=== PATIENT | female | born 1970 | race Caucasian/White ===

== ENCOUNTER 2018-06-12 09:20 | Inpatient (IN) | payer OTHER ==
[2018-06-12] VITALS (17 sets, daily range): BP systolic 109–147; BP diastolic 40–80
[~2018-06-12] VITALS: Ht 170.1 cm; Wt 101.8 kg
--- NOTE | ~2018-06-12 | PR ---
[place], [place] [facility] NOTE [id number] #: [id number] ROOM: 531 DOCTOR: SHAKILA RAYMUNDO DPM BIRTHDATE: [birth year] DOS: SUBJECTIVE: The patient is seen postop trimalleolar fracture with syndesmotic dysfunction repair, left. The patient is resting comfortably in bed. OBJECTIVE: No calf pain noted. Cap refill time within normal limits. BK cast intact. ASSESSMENT: Postop trimalleolar fracture repair, left ankle. PLAN: I discussed the case with Internal Medicine. The patient may go home later today and will follow with Dr. Castro at the office. SHAKILA RAYMUNDO DPM CM:PNEVELIN [phone] SHAKILA RAYMUNDO DPM 06/13/181932 interface
--- NOTE | ~2018-06-12 | EKG ---
[place], [place] ELECTROCARDIOGRAM REPORT NAME: TAYLOR ROCK UNIT #: [id number] ROOM: 531 DOCTOR: MALIA DRAFT REPORT BIRTHDATE: [birth year] [facility] Test Date: 2018-06-12 Test Time: 11:48:55 Pat Name: TAYLOR ROCK Department: Room: 531 Gender: F Manager Food Safety: RENEA : 1970 Requested By: MARLENI REYES Order Number: [id number] Reading MD: Cinthia Martinez MD Measurements Intervals [place] Rate: 50 P: 51 OK: 132 QRS: 7 QRSD: 100 T: 31 QT: 436 QTc: 398 Interpretive Statements Sinus rhythm Atrial premature complex No previous ECG available for comparison Electronically Signed On 06-19-2018 8:41:34 PST by Cinthia Martinez MD CM:EKGRPT:ELECTROCARDIOGRAM REPORT [id number] MARLENI REYES EPIPHANY DRAFT REPORT MARLENI REYES
--- NOTE | ~2018-06-12 | WRIGHTHP ---
[place], [place] PATIENT HISTORY AND PHYSICAL EXAM NAME: TAYLOR ROCK UNIT #: [id number] ROOM: 531 DOCTOR: MONIK IVEY DPM BIRTHDATE: [birth year] DOS: 06/12/2018 LOWER EXTREMITY PHYSICAL EXAMINATION. VASCULAR: Once she was in the surgical suite, vascular status was intact. Good cap refill time was noted. Palpable pedal pulses, 2/4 DP and PT bilaterally. In the ER, ____ good sensation to right lower extremity. At this time, I ____ assess as she had a pop block performed and she has been anesthetized. DERMATOLOGIC: She had no fracture blisters. Skin tear was intact. She had ecchymosis. Some [id number] edema given her instability and gross displacement of her ankle fracture. ORTHOPEDIC: Exam revealed a significant trimalleolar ankle fracture with large posterior malleolus and comminution in fibula and medial malleolar fracture as well. MONIK IVEY DPM CM:HISPHYS:PATIENT HISTORY AND PHYSICAL EXAMINATION 26 41 MONIK IVEY DPM 06/12/18 2301 interface
--- NOTE | ~2018-06-12 | O ---
[place], [place] OPERATIVE NOTE NAME: [facility] [id number] UNIT #: [id number] ROOM: 531 DOCTOR: MONIK IVEY DPM BIRTHDATE: [birth year] DOS: 06/12/2018 SURGEON: Monik Ivey DPM ASSISTANTS: 1. Dr. Lencho Diallo. 2. Bennett Bowden, PGY-3 3. Cameron Dawkins, PGY-2 PREOPERATIVE DIAGNOSIS: Trimalleolar ankle fracture of the left. PREOPERATIVE DIAGNOSIS: Trimalleolar ankle fracture of the left with inclusion of partial syndesmosis tear of her left ankle. PROCEDURES: 1. Open reduction trimalleolar ankle fracture. 2. Repair of syndesmosis injury of the left ankle. This patient was seen in the preop holding, appropriate site marking was performed. She agreed, the site marking, also concurred with the treatment, understanding of pros and cons, risks and benefits. With this in mind, she was brought in the OR and placed on a well-padded OR table where anesthesia was achieved. Her left foot and leg were prepped and draped in sterile fashion. The patient had popliteal block in the preoperative holding area. PROCEDURES: 1. Open reduction and internal fixation of distal fibula ____ pressure was reduced, temporarily fixated under fluoroscopy. 2. Interfrag screws 3.5 mm was performed. This was fixated with a fibular plate consisted of locking and nonlocking screws. At this point in time, syndesmosis was stressed noted to be fairly stable, but was not certain as there was no gross instability because of posterior malleolus and medial malleolus. Next, attention was directed medially where incision was made to safe the neurovascular structures down to the deep tissue. At this point in time, there appeared to be little bit more comminution of what appeared on the plain films. It was temporarily reduced with a bone reduction forceps and this was fixated with 4 solid cortical screws. This was stable; however, this did fragment and this became even more comminuted at this point in time. At this point in time, the screws had to be backed out and a 6-hole plate was utilized and then capturing the distal medial tip of the malleolus. At this time, this was fixated with approximately 3.5 solid cortical screw with locking and nonlocking screws; however, there was still some fragment at the medial gutter that was not quite aligned and the screws could not capture, so we used K-wire to maintain this and get the mortise anatomic alignment. Next, the posterior malleolus was reduced, it was temporarily fixated with K wires and attempt was performed ____ repair. This cannot be well maintained, so this was backed out and a large Ponce clamp was used to reduce this. The posterior cortex noted to be very well aligned. There was noted to be significant loss of a distal articular piece that was noted more like a knot on the injury. The [place], [place] OPERATIVE NOTE NAME: TAYLOR ROCK UNIT #: [id number] ROOM: [facility] DOCTOR: MONIK IVEY DPM BIRTHDATE: [birth year] posterior cortex was well aligned, well maintained in order to have clamp compression and 2 indirect 3.5 cortical screws were used fixing this area. At this point in time, ankle joint was noted to be pretty good; however, there was some slight instability and there was a palpable click that could be determined and it was determined that this is from the syndesmosis, so a large Ponce clamp was put on with ankle joint dorsiflexion to neutral position and two 4.0 solid cortical screws were utilized for syndesmosis from lateral to medial. Once this was performed, this accepted the fibula slightly more medially stabilizing the mortise better and there was no audible palpable click that could be determined and the range of motion was adequate. The 0.062 K-wire was used for being interfered with ankle joint motion. There was flow without difficulty. Then anatomic alignment was noted to be well maintained throughout with the distal fibula, posterior malleolus and the medial malleolus as well as syndesmosis. Again, range of motion was checked, 2 hours of tourniquet had been dropped and ____ wet with good hemostasis was obtained. The area was irrigated with copious amounts of sterile saline. Deep tissues were closed using 0 Vicryl, skin was closed with 2-0 nylon. The surgical wounds were dressed with Betadine-soaked Adaptic, 4 x 4s, Zachery in a sterile compressive fashion. Univalve BK cast was applied to her left lower extremity. She left the OR with vital signs stable and vascular status intact. MONIK IVEY DPM CM:OPRECORD:OPERATIVE NOTE [id number] MONIK IVEY DPM 06/13/18 1208 interface
--- NOTE | ~2018-06-12 | WRIGHTHP ---
[place], [place] PATIENT HISTORY AND PHYSICAL EXAM NAME: TAYLOR ROCK UNIT #: [id number] ROOM: 531 DOCTOR: MONIK IVEY DPM BIRTHDATE: [birth year] DOS: 06/12/2018 INDICATION: The patient had today where she slipped off a truck and fell and causing a pretty significant injury to her left ankle. She was taken to the Emergency Room and she has had a closed reduction of left ankle. The patient has ; however, the patient is requesting to have it done today. The plantar soft tissue was and no significant injured soft tissues, were well maintained and controlled with edema. We were able to do this today and admitted to hospital. With this in mind, she understood pros and cons, risks and benefits, overcorrection, undercorrection, recurrence, infection, nonunion, delayed union, malunion, DVT, PE, limb loss, RSD, CRPS, in particular posttraumatic arthritis, significant displacement and comminution of her distal fibula and posterior malleolus as well as the medial malleolus. I saw her in the preop holding. I introduced myself. I discussed the surgery which she was having the pop block done and she understood that she had a previous fracture of right ankle, though she said 7 years ago . After discussion with her, she was moving forward and proceeded with surgery. She agreed to site marking and agreed with the surgery and with this in mind, we brought her into the surgery suite. MONIK IVEY DPM CM:HISPHYS:PATIENT HISTORY AND PHYSICAL EXAMINATION 26 37 MONIK IVEY DPM 06/12/182236 interface
[2018-06-12 12:26] LABS: HEMATOCRIT 40.4 % (37.0-47.0); HEMOGLOBIN 13.3 g/dl (12.0-16.0); MEAN CELL VOLUME 94.2 fl (81.0-99.0); MEAN CORPUSCULAR HGB CONC 32.9 g/dl (33.0-37.0); MEAN PLATELET VOLUME 9.2 fl (9.6-12.3); PLATELET COUNT AUTOMATED 229 10*3/uL (130-400); RED BLOOD COUNT 4.29 10*6/uL (4.10-5.10); RED CELL DISTRI WIDTH 12.5 % (0-14.5); WHITE BLOOD COUNT 12.4 10*3/uL (4.8-10.8)
[2018-06-12 12:34] LABS: ACT PARTIAL THROMBO TIME 21.1 SECONDS (20.8-31.5)
[2018-06-12 12:43] LABS: ALBUMIN 3.4 gm/dl (3.1-4.5); ALKALINE PHOSPHATASE 77 U/L (45-117); BUN 11 mg/dl (7-24); CHLORIDE 106 mmol/L (98-107); CREATININE 0.74 mg/dL (0.55-1.02); POTASSIUM 3.9 mmol/L (3.5-5.1); SGOT/AST 19 IU/L (3-35); SGPT/ALT 19 U/L (12-78); SODIUM 138 mmol/L (136-145); TOTAL PROTEIN 7.3 gm/dL (6.4-8.2)
[2018-06-12 12:49] LABS: PLATELET SUFFICIENCY NORMAL (NORMAL); TOTAL CELLS COUNTED 100 #CELLS
[2018-06-13] VITALS: BP 120/52
[2018-06-13 03:43] VITALS: BP 98/64
[2018-06-13 05:35] VITALS: BP 120/62
[2018-06-13 06:33] LABS: BASO % 0.1 % (0.0-1.0); EOS % 0.3 % (1.0-4.0); LYMPH # 1.4 10*3/uL (1.3-4.4); LYMPH % 18.3 % (27.0-41.0); MEAN CORPUSCULAR HGB 31.7 pg (27.0-31.0); MEAN CORPUSCULAR HGB CONC 33.3 g/dl (33.0-37.0); MEAN PLATELET VOLUME 9.5 fl (9.6-12.3); MONO # 0.5 10*3/uL (0.1-1.0); MONO % 6.6 % (3.0-9.0); NEUT # 5.6 10*3/uL (2.3-7.9); NEUT % 74.4 % (47.0-73.0); PLATELET COUNT AUTOMATED 210 10*3/uL (130-400); RED BLOOD COUNT 3.38 10*6/uL (4.10-5.10); RED CELL DISTRI WIDTH 12.5 % (0-14.5); WHITE BLOOD COUNT 7.5 10*3/uL (4.8-10.8)
[2018-06-13 06:34] LABS: HEMATOCRIT 32.1 % (37.0-47.0); HEMOGLOBIN 10.7 g/dl (12.0-16.0)
[2018-06-13 06:58] LABS: ALBUMIN 2.7 gm/dl (3.1-4.5); ALKALINE PHOSPHATASE 68 U/L (45-117); BUN 8 mg/dl (7-24); CHLORIDE 106 mmol/L (98-107); CHOLESTEROL 85 mg/dL (<200); CREATININE 0.78 mg/dL (0.55-1.02); HDL CHOLESTEROL 50 mg/dl (40-60); LDL CHOLESTEROL 23 mg/dL (9-159); POTASSIUM 3.7 mmol/L (3.5-5.1); SGOT/AST 20 IU/L (3-35); SGPT/ALT 17 U/L (12-78); SODIUM 141 mmol/L (136-145); TOTAL PROTEIN 5.9 gm/dL (6.4-8.2); TRIGLYCERIDES 58 mg/dl (<150); VLDL CHOLESTEROL 12 mg/dL (6-40)
[2018-06-13 08:00] VITALS: BP 90/60
[2018-06-13 12:00] VITALS: BP 112/62
[2018-06-13] MEDS ORDERED: HYDROCODONE-AC1 EAC1 PO (12:29)
[2018-06-13] MEDS ORDERED: TRAMADOL HCL50 MG PO (14:39)
[2018-06-13] MEDS ORDERED: XARELTO10 MG PO (14:39)
[2018-06-13] MEDS ORDERED: DOXYCYCLINE100 M3 PO (14:39)
== END 2018-06-13 15:44 | disposition home or self-care (01) | DRG 493 ==
LOC: ED → 5E 12:19 → EDHOLD 12:19 → 5E 12:27
PROVIDERS: Nurse Practitioner Family; Student in an Organized Health Care Education/Training Program
PROC: 0QSH04Z Reposition Left Tibia with Internal Fixation Device, Open Approach (ICD-10-PCS; principal; 2018-06-12)
PROC: 0SSG04Z Reposition Left Ankle Joint with Internal Fixation Device, Open Approach (ICD-10-PCS; principal; 2018-06-12)
PROC: 0QSK04Z Reposition Left Fibula with Internal Fixation Device, Open Approach (ICD-10-PCS; principal; 2018-06-12)
DX: S82.852A Displaced trimalleolar fracture of left lower leg, initial encounter for closed fracture (principal); S93.432A Sprain of tibiofibular ligament of left ankle, initial encounter; E44.1 Mild protein-calorie malnutrition; F41.9 Anxiety disorder, unspecified; E66.9 Obesity, unspecified; D72.89 Other specified disorders of white blood cells; R00.1 Bradycardia, unspecified; W01.0XXA Fall on same level from slipping, tripping and stumbling without subsequent striking against object, initial encounter; Y93.89 Activity, other specified; Y92.89 Other specified places as the place of occurrence of the external cause; Y99.8 Other external cause status; Z98.891 History of uterine scar from previous surgery; Z68.33 Body mass index [BMI] 33.0-33.9, adult

== ENCOUNTER → 2018-09-23 | Day surgery (SDC) | payer OTHER ==
[~2018-09-23] VITALS: Ht 170.1 cm; Wt 97.5 kg
[~2018-09-23] MED LIST: DOXYCYCLINE100 M3 PO; HYDROCODONE-AC1 EAC1 PO; NO HOME MEDICATION; TRAMADOL HCL50 MG PO; XARELTO10 MG PO
--- NOTE | ~2018-09-23 | WRIGHTHP ---
[place], [place] PATIENT HISTORY AND PHYSICAL EXAM NAME: TAYLOR ROCK UNIT #: [id number] ROOM: DOCTOR: MONIK IVEY DPM BIRTHDATE: [birth year] DOS: 09/23/2018 LOWER EXTREMITY PHYSICAL EXAM: VASCULAR: She has palpable pedal pulses, 2/4 DP and PT left with good cap refill time. NEUROLOGICAL: She has intact epicritic sensation on left. MUSCULOSKELETAL: She has improved range of motion, but somewhat limited and somewhat tight comparatively. Understand that she says she had it where she was on her last ankle fracture, which she sustained years ago on her right side, so she feels like she is progressing well. DERMATOLOGY: Well-healed skin. Skin integrity is intact. ORTHOPEDIC: Painful hardware x 3, left lateral ankle. MONIK IVEY DPM CM:HISPHYS:PATIENT HISTORY AND PHYSICAL EXAMINATION 1121 1256 MONIK IVEY DPM 09/23/18 1256 interface
--- NOTE | ~2018-09-23 | WRIGHTHP ---
[place], [place] PATIENT HISTORY AND PHYSICAL EXAM [id number] UNIT #: [id number] ROOM: DOCTOR: MONIK IVEY DPM BIRTHDATE: [birth year] DOS: 09/23/2018 INDICATIONS: This patient is seen post open reduction and internal fixation of trimalleolar fracture with syndesmotic screws. At this time, the patient was sent for surgery today on 09/23/2018 understanding the pros, cons, risks and benefits for removal of hardware x 3. There is one screw that is proud in the left lateral inferior plate and two syndesmotic screws, left lateral that is causing the pain. She is aware of this. She agreed with the site marking, she agreed with preoperative management, she agreed with understanding of the surgery and a need for surgery. With this in mind, all questions were answered to her satisfaction and liking. MONIK IVEY DPM CM:HISPHYS:PATIENT HISTORY AND PHYSICAL EXAMINATION 1121 1254 MONIK IVEY DPM 09/23/18 1413 interface
--- NOTE | ~2018-09-23 | O ---
[place], [place] OPERATIVE NOTE [id number] UNIT #: [id number] ROOM: DOCTOR: MONIK IVEY DPM BIRTHDATE: [birth year] DOS: 09/23/2018 SURGEON: Monik Ivey DPM. ASSISTANTS: 1. Dr. Diallo. 2. Christi Montemayor, PGY1. 3. Shantel Crook, PGY1. PREOPERATIVE DIAGNOSES: 1. Painful hardware, left proximal and distal fibula. 2. Painful hardware, left central fibula. 3. Left distal fibula laterally. POSTOPERATIVE DIAGNOSES: 1. Painful hardware, left proximal and distal fibula. 2. Painful hardware, left central fibula. 3. Left distal fibula laterally. PROCEDURES: 1. Removal of hardware, left proximal and distal fibula. 2. Removal of hardware, left lateral central. 3. Removal of hardware, left distal fibula. DESCRIPTION OF PROCEDURE: The patient was seen in preop holding area with her mom. Appropriate site marking was performed. She agreed. She agreed with perioperative management and the postoperative course. With this mind, she was brought in the OR and placed on a well-padded OR table where anesthesia was achieved. Once the anesthesia was achieved, her left foot and leg were prepped and draped in usual sterile fashion. Under fluoroscopic guidance, attention directed to the left lateral ankle. PROCEDURE #1: Removal of painful internal fixation of left proximal and distal fibula. Under fluoroscopy, a 15 blade was used to make a stab incision over the left distal proximal fibula. This was deepened in the same plane using sharp and blunt dissection, avoiding the neurovascular structures, carried down to the bone and the screw. At this time, the screw was backed out and this was closed using 2-0 nylon. PROCEDURE #2: Removal of painful hardware, left distal central fibula. Attention directed to left distal central fibula. Under fluoroscopy guidance, a 15 blade was used to make a stab incision. This was deepened in the same plane using sharp and blunt dissection, avoiding the neurovascular structures, carried down to the screw and bone and at this point in time, the screw was backed out and removed in total. The wound was closed using 2-0 nylon. PROCEDURE #3: Removal of painful hardware, distal lateral fibula, left. Attention directed to the distal fibula along the painful hardware that was proud. A stab incision was made. This was deepened in the same plane using sharp and blunt dissection, avoiding the neurovascular structures, carried down [place], [place] OPERATIVE NOTE NAME: TAYLOR ROCK UNIT #: [id number] ROOM: DOCTOR: MONIK IVEY DPM BIRTHDATE: [birth year] to the screw. The screw then was backed out and removed in total. The area was irrigated with copious amounts of sterile saline. Skin was closed using 2-0 nylon. The patient was anesthetized with 30 mL of 0.5% Marcaine about the surgical site. The surgical wounds were dressed with Betadine-soaked Adaptic, 4 x 4s, Zachery in a sterile compressive fashion. She tolerated the procedure and anesthesia well and left the OR with vital signs stable and vascular status intact. MONIK IVEY DPM CM:OPRECORD:OPERATIVE NOTE 1121 1301 MONIK IVEY DPM 09/23/18 1501 interface
[2018-09-23 08:45] VITALS: BP 123/53
[2018-09-23 10:55] VITALS: BP 128/76
[2018-09-23 11:10] VITALS: BP 118/58
[2018-09-23 11:22] VITALS: BP 131/62
[2018-09-23 11:40] VITALS: BP 124/61
== END | disposition home or self-care (01) ==
LOC: SDC 09-11 11:00
DX: T84.84XA Pain due to internal orthopedic prosthetic devices, implants and grafts, initial encounter (principal); M79.662 Pain in left lower leg; F41.9 Anxiety disorder, unspecified; F32.9 Major depressive disorder, single episode, unspecified; Z98.890 Other specified postprocedural states; Z79.899 Other long term (current) drug therapy